=== PATIENT | female | born 1965 | race Caucasian/White ===

== ENCOUNTER → 2023-04-11 08:41 | Outpatient (REF) | payer OTHER, SELFPAY | LOC: WDC 08:41 | PROVIDERS: ATTENDING PHYSICIAN Nurse Practitioner Family | DX: Z12.31 Encounter for screening mammogram for malignant neoplasm of breast (principal) | CPT/HCPCS: 77063; 77067 ==

== ENCOUNTER 2024-01-15 14:29 | Emergency (ER) | payer OTHER, SELFPAY ==
[2024-01-15 14:32] VITALS: BP 151/93
--- NOTE | 2024-01-15 15:45 | ED.GENMED ---
History of Present Illness
General
Chief Complaint: Crisis Evaluation
Source: patient
Exam Limitations: none
Time Seen by Provider: 01/15/24 15:13
Nursing documentation reviewed up to this point in time: agreed with
History of Present Illness
History of Present Illness:
Patient to ED with complaint of depression symptoms. She was evaluated by crisis and found to be in no danger of self harm. She is requesting referral to outpatient psychiatrist which is being provided by crisis. She denies any suicidal/homicidal
thoughts at this time. She reports she feels safe and would like to follow up outpatient. SHe was cleared by [facility] for discharge.
Past History
Past History
ED Past Medical History: HTN and Psychiatric (depression)
ED Past Surgical History: Gynecological
Social History
Tobacco: Non-smoker
Alcohol: Occasional
Drug: None
Personal:
Living: with family
Employment: Employed
Family History
Family History: Other (Noncontributory)
Review of Systems
Review of Systems
Allergies reviewed?: Yes
All Other Systems: ROS reviewed and negative except as documented in HPI and ROS
Constitutional: Reports no symptoms
EENT: Reports no symptoms
Respiratory: Reports no symptoms
Cardiac: Reports no symptoms
ABD/GI: Reports no symptoms
Musculoskeletal: Reports no symptoms
Skin: Reports no symptoms
Neurological: Reports no symptoms
Psychiatric: Reports depression
Phy Exam
General Physical Exam
General Presentation: well appearing and no apparent distress
General age: appears stated age
General Skin: warm and dry
General Habitus: normal
General Mental: alert
Musculoskeletal Exam
Musculoskeletal Exam: full ROM
Skin Exam
Skin Exam: normal color
Psychiatric Exam
Psychiatric Exam: other (Alert, cooperative. Denies SI, HI)
Course
Orders/Labs/Results
Orders:
Orders
01/15/24 14:38
1:1 Observation - Suicide/ Violent Behavior As Directed
Crisis Consult Urgent
Reason for Consult: SI
Vital Signs
Initial and Last Documented VS:
Initial Vital Signs
Temp Pulse Resp BP Pulse Ox
97.9 F 112 16 151/93 97
01/15/24 14:32 01/15/24 14:32 01/15/24 14:32 01/15/24 14:32 01/15/24 14:32
Last Documented Vital Signs
Temp Pulse Resp BP Pulse Ox
97.9 F 112 16 151/93 97
01/15/24 14:32 01/15/24 14:32 01/15/24 14:32 01/15/24 14:32 01/15/24 14:32
*Critical Care Note
Total Time (30-74mins, 75-104mins- exclusive of procedures): Not Applicable
Update Note
Update Note:
Patient to ED admitting to feeling more depressed. Expressed to triage that she had thoughts of overdosing on her BP medications. SHe now denies si/hi. SHe states she is looking for outpatient help. SHe met with crisis who have cleared her for
discharge. Crisis does not feel that she is a harm to self or others. Crisis has provided follow up to her and patient is satisfied with this. Discussed the need for immediate return if her depression worsens, any thoughts of self harm/harming
others and she is agreeable to plan. Declined labs in ED, states she will follow up [facility] [facility] PCP instead.
ED Attending Note
-
Portions of this chart may have been created with voice recognition software.� Occasional wrong word or��sound alike� substitutions may have occurred due to the inherent limitations of voice recognition software.
Discharge Plan
Departure
Patient Disposition: Home (Routine Discharge)
Date of Disposition: 01/15/24
Time of Disposition: 15:43
Patient with high blood pressure during this ER visit?: No
Condition: Good
Covid-19: Not Applicable
Discharge Problem:
Depression
Instructions: Depression, Adult (DC)
Prescriptions:
No Action
lisinopril 20 mg tablet
20 mg PO HS
escitalopram oxalate 10 mg tablet
10 mg PO HS
Referrals:
UNKNOWN - PT NOT,INTERVIEWE [Family Provider] -
Activity Restrictions/Additional Instructions:
Follow up with the psychiatric provider that was provided by crisis. As we discussed, return to the emergency department immediately if your symptoms worsen or for any concerns.
Interventions
Interventions:
*Risk Screen - Suicide Last Done: 01/15/24 14:32
*General Assessment Last Done: 01/15/24 14:32
*Neglect/Abuse Screening Last Done: 01/15/24 14:32
*ED COVID-19 Vaccine History Last Done: 01/15/24 14:32
Discharge Date and Time
Print Language: CUBAN
== END 2024-01-15 15:57 | disposition home or self-care (01) ==
LOC: EMR 14:29
PROVIDERS: EMERGENCY PHYSICIAN Emergency Medicine
DX: F32.A Depression, unspecified (principal); I10 Essential (primary) hypertension
CPT/HCPCS: 99283

== ENCOUNTER → 2024-04-14 08:37 | Outpatient (REF) | payer OTHER, SELFPAY | LOC: WDC 08:37 | PROVIDERS: ATTENDING PHYSICIAN Internal Medicine | DX: Z12.31 Encounter for screening mammogram for malignant neoplasm of breast (principal) | CPT/HCPCS: 77063; 77067 ==